=== PATIENT | female | born 1990 | race Caucasian/White ===

== ENCOUNTER 2020-12-15 15:45 | Outpatient (REF) | payer OTHER, SELFPAY ==
[2020-12-15 20:31] LABS: ALT 23 U/L (14-59); AST 16 U/L (15-37); Albumin 4.2 g/dL (3.4-5.0); Alkaline Phosphatase 50 U/L (46-116); Anion Gap 8.7 mmol/L (3-11); BUN 8 mg/dL (7-18); Bilirubin, Total 0.6 mg/dL (0.2-1.0); CO2 28.3 mmol/L (21.0-32.0); CREATININE 0.6 mg/dL (0.55-1.02); Calcium 9.2 mg/dL (8.5-10.1); Chloride 105 mmol/L (98-107); Glucose 93 mg/dL (74-106); Potassium 4.3 mmol/L (3.5-5.1); Sodium 142 mmol/L (136-145); TSH (W/Ref FT4) 1.14 uIU/mL (0.36-3.74); Total Protein 7.5 g/dL (6.4-8.2)
== END 2020-12-15 15:46 | disposition home or self-care (01) ==
LOC: NCHCN 15:45
PROVIDERS: Visit Provider Nurse Practitioner
DX: Z13.29 Encounter for screening for other suspected endocrine disorder (principal); F90.9 Attention-deficit hyperactivity disorder, unspecified type; Z83.49 Family history of other endocrine, nutritional and metabolic diseases
CPT/HCPCS: 80053; 84443

== ENCOUNTER 2021-01-14 09:21 | Outpatient (REF) | payer OTHER, SELFPAY ==
--- NOTE | 2021-01-14 08:15 | PAPFT_PTH ---
PATIENT: Sheron Melendez LOC: [facility]#:[id number] AGE/SX: 30/F ROOM: RE01/14/[address]: Manisha Denis : 1990 BED: DIS: 01/14/2021 SPEC #: [id number] RECD: 01/15/21 12:58 STATUS: NICOLE REQ #: [id number] TERE: 01/14/21 08:[address]: Manisha Denis DEPT: [facility] Cytology RECD BY: Pennie Santos ENTERED: 01/15/21 12:59 SP TYPE: PAPFT OTHR DR: Unknown,Unknown Tissues: 1 - CX/ENDOCX FOR PAP SMEARS Procedures: PAP THIN PREP/[facility] Screening Comments: [id number]
== END 2021-01-14 09:22 | disposition home or self-care (01) ==
LOC: NCHCN 09:21
PROVIDERS: Visit Provider Nurse Practitioner
DX: Z00.00 Encounter for general adult medical examination without abnormal findings (principal); Z12.4 Encounter for screening for malignant neoplasm of cervix
CPT/HCPCS: 88142

== ENCOUNTER 2023-10-13 10:02 | Outpatient (REF) | payer OTHER, SELFPAY ==
[2023-10-13 18:46] LABS: Abs Immature Grans 0.01 10^3/uL (0.0-0.06); Absolute Basophil Count 0.04 10^3/uL (0.0-0.2); Absolute Eosinophil Count 0.65 10^3/uL (0.0-0.7); Absolute Lymphocyte Count 2.43 10^3/uL (1.2-3.4); Absolute Neutrophil Count 3.01 10^3/uL (1.2-6.7); Basophils % 0.6; Eosinophils % 9.8; HCT 41.5 % (36.0-46.0); HGB 13.7 g/dL (11.2-15.7); Immature Grans % 0.2; Lymphocytes % 36.6; MCV 88 fL (80-95); MPV 10.9 fL (8.0-11.0); Monocytes % 7.5; Neutrophils % 45.3; Platelet Count 232 10^3/uL (130-400); RBC 4.72 10^6/uL (3.93-5.22); RDW 11.6 % (11.7-14.6); RDW-SD 37.2 fL; WBC 6.64 10^3/uL (4.4-10.8)
[2023-10-13 19:11] LABS: ALT 23 U/L (14-59); AST 16 U/L (15-37); Albumin 4.2 g/dL (3.4-5.0); Alkaline Phosphatase 58 U/L (46-116); BUN 12 mg/dL (7-18); Bilirubin, Total 0.5 mg/dL (0.2-1.0); CREATININE 0.5 mg/dL (0.55-1.02); Calcium 8.6 mg/dL (8.5-10.1); Chloride 105 mmol/L (98-107); Estimated GFR 128.52 (mL/min/1.73m2); Ferritin 36 ng/mL (8-252); Glucose 85 mg/dL (74-106); Potassium 4.6 mmol/L (3.5-5.1); Sodium 142 mmol/L (136-145); TSH (W/Ref FT4) 1.46 uIU/mL (0.36-3.74); Total Protein 7.6 g/dL (6.4-8.2)
[2023-10-13 20:41] LABS: Iron 56 ug/dL (50-170); Total Iron Binding Capacity 302 ug/dL (250-450); Transferrin Sat 19 % (15-50)
== END 2023-10-13 10:03 | disposition home or self-care (01) ==
LOC: NCHCN 10:02
PROVIDERS: Visit Provider Nurse Practitioner Family
DX: R53.83 Other fatigue (principal)
CPT/HCPCS: 80053; 82728; 83540; 83550; 84443; 85025

== ENCOUNTER 2024-04-03 16:18 | Outpatient (REF) | payer OTHER, SELFPAY ==
--- NOTE | 2024-04-03 13:45 | PAPFT_PTH ---
PATIENT: Sheron Melendez LOC: [facility] U#:[id number] AGE/SX: 33/F ROOM: RE04/03/[address]: Jihan Ramos : 1990 BED: DIS: 04/03/2024 SPEC #: [id number] RECD: 04/04/24 13:17 STATUS: NICOLE REQ #: [id number] TERE: 04/03/24 13:[address]: Jihan Ramos DEPT: [facility] Cytology RECD BY: Pennie Santos ENTERED: 04/04/24 13:19 SP TYPE: PAPFT OTHR DR: Unknown,Unknown Tissues: 1 - CX/ENDOCX FOR PAP SMEARS Procedures: PAP THIN PREP/[facility] Screening HPV DNA PROBE Comments: [id number] (HPV 16 & 18/45) (CHLAMYDIA/GC)
[2024-04-05 12:52] LABS: Chlamydia Result Negative (Negative); GC Result Negative (Negative)
== END 2024-04-03 16:19 | disposition home or self-care (01) ==
LOC: NCHCN 16:18
PROVIDERS: Visit Provider Nurse Practitioner Family
DX: Z11.51 Encounter for screening for human papillomavirus (HPV) (principal); Z01.419 Encounter for gynecological examination (general) (routine) without abnormal findings; Z11.3 Encounter for screening for infections with a predominantly sexual mode of transmission
CPT/HCPCS: 87491; 87591; 88142; 87624

== ENCOUNTER 2024-04-25 15:13 | Outpatient (REF) | payer OTHER, SELFPAY ==
--- OUTSIDE RECORDS SUMMARY | 2024-04-25 15:14 | XMS_ITS | Clinical Summary ---
Author Organization [facility] Address [address] [place] [address] Care Team Providers Care Enrobing Machine Feeder Name Role Phone Unknown, Provider Primary Care Provider Unava ilable Encounters Date Type Department Care Team Description 2024 Lab Requisition [facility] Pathology & Laboratory [address] [address] Jihan Ramos FNP Encounter for screening for human papillomavirus (HPV); Encounter for screening for malignant neoplasm of cervix; Encounter for general adult medical examination without abnormal findings 04/04/2024 Lab Requisition [facility] Pathology & Laboratory [address] [address] Outr Resulting Lab, Provider from Last 3 Months Social History Tobacco Use Types Packs/Day Years Used Date Smoking Tobacco: Never Assessed Sex and Gender Information Value Date Recorded Sex Assigned at Not on file Gender Identity Not on file Sexual Orientation Not on file Plan of Treatment Health Maintenance Due Date Last Done Comments Hepatitis C Screen 1990 Hepatitis B Vaccine (1 of 3 - 19+ 3-dose series) 04/05 COVID-19 Vaccine ( season) 2024 Procedures Procedure Name Priority Date/Time Associated Diagnosis Comments PAP TEST Today 04/03/2024 13:45 EDT Encounter for screening for human papillomavirus (HPV) Encounter for screening for malignant neoplasm of cervix Encounter for general adult medical examination without abnormal findings HPV DNA DETECTION WITH GENOTYPING, PCR Today 04/03/2024 13:45 EDT Encounter for screening for human papillomavirus (HPV) Encounter for screening for malignant neoplasm of cervix Encounter for general adult medical examination without abnormal findings CHLAMYDIA/N. GONORRHOEAE AMPLIFIED NUCLEIC ACID, THINPREP Routine 04/03/2024 13:45 EDT from Last 3 Months Results * PAP TEST (04/03/2024 13:45 EDT) Specimens A. Cervix and/or Endocervix , ThinPrep Imaging System with Manual Evaluation 04/16/2024 14:29 EDT [facility] Specimen Adequacy Satisfactory for Evaluation - transformation zone component present 04/16/2024 14:29 [facility] General Categorization Negative for intraepithelial lesion or malignancy 04/16/2024 14:29 [facility] Attestation . 04/16/2024 14:29 [facility] at 1428 Clinical History SEE BELOW 04/16/20 14:29 [facility] Performing Lab [facility] 04/16/2024 14:29 [facility] Scanned Images 04/16/2024 14:29 [facility] HPV High Risk type 16, PCR Negative 04/16/2024 14:29 [facility] HPV High Risk type 18, PCR Negative 04/16/2024 14:29 [facility] HPV Other High Risk Types, PCR Negative The following Other High Risk HPV types were not detected: 31,33, 35, 39, 45, 51, 52, 56, 58, 59, 66 and 68. 04/16/2024 14:29 [facility] Pap Test CERVIX UTERI STRUCTURE / Unknown 04/03/2024 13:45 EDT 2024 15:04 EDT Jihan Ramos CUTTING MACHINE TENDER HELPER PATHOLOGY ORDERABLES [facility] [address] [place], [place] [id number] * CHLAMYDIA/N. GONORRHOEAE AMPLIFIED NUCLEIC ACID, THINPREP (04/03/2024 13:45 EDT) Neisseria gonorrhoeae Result Negative Negative 2024 12:47 EDT [facility] Chlamydia trachomatis Result Negative Negative 2024 12:47 EDT [facility] Pap Test CERVIX UTERI STRUCTURE / Unknown 04/03/2024 13:45 EDT 2024 8:41 EDT Provider Outr Resulting Lab MICROBIOLOGY - GENERAL ORDERABLES Performing Organization Address City/[facility]/ZIP Co de Phone Number [facility] [address] [place] [address] * HPV DNA DETECTION WITH GENOTYPING, PCR (04/03/2024 13:45 EDT) HPV High Risk type 16, PCR Negative Negative 04/16/2024 14:29 EDT [facility] HPV High Risk type 18, PCR Negative Negative 04/16/2024 14:29 EDT [facility] HPV other High Risk types, PCR Negative Negative 04/16/2024 14:29 EDT [facility] Comment: The following Other High Risk HPV types were not detected: ??31,33, 35, 39, 45, 51, 52, 56, 58, 59, 66 and 68. Pap Test CERVIX UTERI STRUCTURE / Unknown 04/03/2024 13:45 EDT 04/13/2024 10:13 EDT Jihan Ramos CUTTING MACHINE TENDER HELPER MICROBIOLOGY - GENER AL ORDERABLES Performing Organization Address City/[facility]/ZIP Co de Phone Number [facility] [address] [place], [place] [address] from Last 3 Months Care Teams Enrobing Machine Feeder Relationship Specialty Start Date End Date Unknown, Provider, PCP - General 07/19/15
--- OUTSIDE RECORDS SUMMARY | 2024-04-25 15:14 | XMS_ITS | Encounter Summary ---
Author Organization [facility] Address [address] [place] [address] Care Team Providers Care Railway Yard Assistant Name Role Phone Unknown, Provider Primary Care Provider Ilene ilable Encounter Details Date Type Department Care Team (Late st Contact Info) Description 04/04/2024 Lab Requisition [facility] Pathology & Laboratory Medicine - [address] [phone] Outr Resulting Lab, Provider Social History Tobacco Use Types Packs/Day Years Used Date Smoking Tobacco: Never Assessed Sex and Gender Information Value Date Recorded Sex Assigned at Not on file Gender Identity Not on file Sexual Orientation Not on file documented as of this encounter Plan of Treatment Not on file documented as of this encounter Procedures Procedure Name Priority Date/Time Associated Diagnosis Comments CHLAMYDIA/N. GONORRHOEAE AMPLIFIED NUCLEIC ACID, THINPREP Routine 04/03/2024 13:45 EDT documented in this encounter Results * CHLAMYDIA/N. GONORRHOEAE AMPLIFIED NUCLEIC ACID, THINPREP (04/03/2024 13:45 EDT) Neisseria gonorrhoeae Result Negative Negative 2024 12:47 EDT [facility] Chlamydia trachomatis Result Negative Negative 2024 12:47 EDT [facility] Pap Test CERVIX UTERI STRUCTURE / Unknown 04/03/2024 13:45 EDT 2024 8:41 EDT Provider Outr Resulting Lab MICROBIOLOGY - GENERAL ORDERABLES [facility] [address] [place], [place] [id number] [phone] documented in this encounter Visit Diagnoses Not on filedocumented in this encounter Care Teams Railway Yard Assistant Relationship Specialty Start Date End Date Unknown, Provider, PCP - General 07/19/15 documented as of this encounter
--- OUTSIDE RECORDS SUMMARY | 2024-04-25 15:14 | XMS_ITS | Referral Summary ---
Author Organization [facility] Address [address] [place] [address] Care Team Providers Care Turbine Inspector Name Role Phone Unknown, Provider Primary Care Provider Unava ilable Encounters Date Type Department Care Team Description 2024 Lab Requisition [facility] Pathology & Laboratory [address] [address] Jihan Ramos FNP Encounter for screening for human papillomavirus (HPV); Encounter for screening for malignant neoplasm of cervix; Encounter for general adult medical examination without abnormal findings 04/04/2024 Lab Requisition [facility] Pathology & Laboratory [address] [address] Outr Resulting Lab, Provider from Last 3 Months Social History Tobacco Use Types Packs/Day Years Used Date Smoking Tobacco: Never Assessed Sex and Gender Information Value Date Recorded Sex Assigned at Not on file Gender Identity Not on file Sexual Orientation Not on file Plan of Treatment Not on file Procedures Procedure Name Priority Date/Time Associated Diagnosis [...] Imaging System with Manual Evaluation 04/16/2024 14:29 [facility] Specimen Adequacy Satisfactory for Evaluation - transformation zone component present 04/16/2024 14:29 [facility] General Categorization Negative for intraepithelial lesion or malignancy 04/16/2024 14:29 [facility] Attestation . 04/16/2024 14:29 [facility] at 1428 Clinical History SEE BELOW 04/16/20 14:29 [facility] Performing Lab [facility] 04/16/2024 14:29 [facility] Scanned Images 04/16/2024 14:29 [facility] HPV High Risk type 16, PCR Negative 04/16/2024 14:29 [facility] HPV High Risk type 18, PCR Negative 04/16/2024 14:29 [facility] HPV Other High Risk Types, PCR Negative The following Other High Risk HPV types were not detected: 31,33, 35, 39, 45, 51, 52, 56, 58, 59, 66 and 68. 04/16/2024 14:29 [facility] Pap Test CERVIX UTERI STRUCTURE / Unknown 04/03/2024 13:45 EDT 2024 15:04 EDT Jihan Ramos THERMAL MOLDER PATHOLOGY ORDERABLES [facility] [address] [place] [address] * CHLAMYDIA/N. GONORRHOEAE AMPLIFIED NUCLEIC ACID, THINPREP (04/03/2024 13:45 EDT) Neisseria gonorrhoeae Result Negative Negative 2024 12:47 EDT [facility] Chlamydia trachomatis Result Negative Negative 2024 12:47 EDT [facility] Pap Test CERVIX UTERI STRUCTURE / Unknown 04/03/2024 13:45 EDT 2024 8:41 EDT Provider Outr Resulting Lab MICROBIOLOGY - GENERAL ORDERABLES Performing Organization Address [facility] Co de Phone Number [facility] [address] [place] [address] * HPV DNA DETECTION WITH GENOTYPING, PCR (04/03/2024 13:45 EDT) HPV High Risk type 16, PCR Negative Negative 04/16/2024 14:29 EDT [facility] HPV High Risk type 18, PCR Negative Negative 04/16/2024 14:29 EDT [facility] HPV other High Risk types, PCR Negative Negative 04/16/2024 14:29 EDT [facility] Comment: The following Other High Risk HPV types were not detected: ??31,33, 35, 39, 45, 51, 52, 56, 58, 59, 66 and 68. Pap Test CERVIX UTERI STRUCTURE / Unknown 04/03/2024 13:45 EDT 04/13/2024 10:13 EDT Jihan Ramos THERMAL MOLDER MICROBIOLOGY - GENER AL ORDERABLES Performing Organization Address City/[facility]/ZIP Co de Phone Number [facility] [address] [place] [address] from Last 3 Months Care Teams Turbine Inspector Relationship Specialty Start Date End Date Unknown, Provider, PCP - General 07/19/15
--- OUTSIDE RECORDS SUMMARY | 2024-04-25 15:14 | XMS_ITS | Encounter Summary ---
Author Organization [facility] Address [address] [place] [address] Care Team Providers Care Major Donor Coordinator Name Role Phone Unknown, Provider Primary Care Provider Unava ilable Encounter Details Date Type Department Care Team (Latest Contact Info) Description 2024 Lab Requisition [facility] Pathology & Laboratory Medicine - [facility] [address] [place] [address] Jihan Ramos, ALYSA [address] [place] [address] Encounter for screening for human papillomavirus (HPV); Encounter for screening for malignant neoplasm of cervix; Encounter for general adult medical examination without abnormal findings Social History Tobacco Use Types Packs/Day Years [...] general adult medical examination without abnormal findings documented in this encounter Results * HPV DNA DETECTION WITH GENOTYPING, PCR (04/03/2024 13:45 EDT) HPV High Risk type 16, PCR Negative Negative 04/16/2024 14:29 [facility] HPV High Risk type 18, PCR Negative Negative 04/16/2024 14:29 [facility] HPV other High Risk types, PCR Negative Negative 04/16/2024 14:29 [facility] Comment: The following Other High Risk HPV types were not detected: ??31,33, 35, 39, 45, 51, 52, 56, 58, 59, 66 and 68. Pap Test CERVIX UTERI STRUCTURE / Unknown 04/03/2024 13:45 EDT 04/13/2024 10:13 EDT Jihan Ramos ASSISTANT LOAN PROCESSOR MICROBIOLOGY - GENER AL ORDERABLES [facility] [address] [place] [address] * PAP TEST (04/03/2024 13:45 EDT) Specimens A. Cervix and/or Endocervix , ThinPrep Imaging System with Manual Evaluation 04/16/2024 14:29 [facility] Specimen Adequacy Satisfactory for Evaluation - transformation zone component present 04/16/2024 14:29 [facility] General Categorization Negative for intraepithelial lesion or malignancy 04/16/2024 14:29 [facility] Attestation . 04/16/2024 14:29 [facility] at 1428 Clinical History SEE BELOW 04/16/20 14:29 [facility] Performing Lab [facility] 04/16/2024 14:29 [facility] Scanned Images 04/16/2024 14:29 [facility] HPV High Risk type 16, PCR Negative 04/16/2024 14:29 [facility] HPV High Risk type 18, PCR Negative 04/16/2024 14:29 [facility] HPV Other High Risk Types, PCR Negative The following Other High Risk HPV types were not detected: 31,33, 35, 39, 45, 51, 52, 56, 58, 59, 66 and 68. 04/16/2024 14:29 EDT [facility] Pap Test CERVIX UTERI STRUCTURE / Unknown 04/03/2024 13:45 EDT 2024 15:04 EDT Jihan Ramos ASSISTANT LOAN PROCESSOR PATHOLOGY ORDERABLES Performing Organization Address City/State/[facility] Co de Phone Number [facility] [address] [place] [address] documented in this encounter Visit Diagnoses Diagnosis Encounter for screening for human papillomavirus (HPV) Special screening examination for human papillomavirus (HPV) Encounter for screening for malignant neoplasm of cervix Screening for malignant neoplasm of the cervix Encounter for general adult medical examination without abnormal findings Unspecified general medical examination documented in this encounter Care Teams Major Donor Coordinator Relationship Specialty Start Date End Date Unknown, Provider, PCP - General 07/19/15 documented as of this encounter
--- OUTSIDE RECORDS SUMMARY | 2024-04-25 15:15 | XMS_ITS | Encounter Summary ---
Author Organization [facility] Address [address] [place] [address] Care Team Providers Care Blood Bank Booking Clerk Name Role Phone Unknown, Provider Primary Care Provider Unava ilable Encounter Details Date Type Department Care Team (Latest Contact Info) Description 01/16/2021 Lab Requisition [facility] Pathology & Laboratory Medicine - [address] [address] Manisha Denis NP [address] [place], [place] [id number] Encounter for general adult medical examination without abnormal findings; Encounter for screening for malignant neoplasm of cervix; Encounter for screening for human papillomavirus (HPV) Social History Tobacco Use Types Packs/Day Years Used Date Smoking Tobacco: Never Assessed Sex and Gender Information Value Date Recorded Sex Assigned at Not on file Gender Identity Not on file Sexual Orientation Not on file documented as of this encounter Plan of Treatment Not on file documented as of this encounter Procedures Procedure Name Priority Date/Time Associated Diagnosis Comments PAP TEST Today 01/14/2021 8:15 EDT Encounter for general adult medical examination without abnormal findings Encounter for screening for malignant neoplasm of cervix Encounter for screening for human papillomavirus (HPV) documented in this encounter Results * PAP TEST (01/14/2021 8:15 EDT) Specimens A. Cervix and/or Endocervix , ThinPrep Imaging System with Manual Evaluation 01/23/2021 16:49 EDT [facility] Specimen Adequacy Satisfactory for Evaluation - transformation zone component present 01/23/2021 16:49 EDT [facility] General Categorization Negative for intraepithelial lesion or malignancy 01/23/2021 16:49 EDT [facility] Attestation . 01/23/2021 16:49 EDT [facility] at 1649 Clinical History See below 01/24/20 16:49 EDT [facility] Performing Lab [facility] 01/23/2021 16:49 EDT [facility] Scanned Images 01/23/2021 16:49 EDT [facility] Papanicolaou smear specimen (specimen) CERVIX UTERI STRUCTURE / Unknown 01/14/2021 8:15 EDT 01/16/2021 12:12 EDT Manisha Denis NP PATHOLOGY ORDERABLES [facility] [address] [place] [address] documented in this encounter Visit Diagnoses Diagnosis Encounter for general adult medical examination without abnormal findings Unspecified general medical examination Encounter for screening for malignant neoplasm of cervix Screening for malignant neoplasm of the cervix Encounter for screening for human papillomavirus (HPV) Special screening examination for human papillomavirus (HPV) documented in this encounter Care Teams Blood Bank Booking Clerk Relationship Specialty Start Date End Date Unknown, Provider, PCP - General 07/19/15 documented as of this encounter
[2024-04-25 19:37] LABS: HCT 41.2 % (36.0-46.0); HGB 13.6 g/dL (11.2-15.7); MCV 88 fL (80-95); MPV 11.1 fL (8.0-11.0); Platelet Count 244 10^3/uL (130-400); RBC 4.69 10^6/uL (3.93-5.22); RDW 11.7 % (11.7-14.6); RDW-SD 37.2 fL; WBC 8.96 10^3/uL (4.4-10.8)
[2024-04-25 19:47] LABS: Iron 84 ug/dL (50-170); Total Iron Binding Capacity 307 ug/dL (250-450)
[2024-04-25 20:13] LABS: ALT 19 U/L (14-59); AST 17 U/L (15-37); Albumin 4.4 g/dL (3.4-5.0); Alkaline Phosphatase 63 U/L (46-116); BUN 12 mg/dL (7-18); CREATININE 0.6 mg/dL (0.55-1.02); Calcium 9.4 mg/dL (8.5-10.1); Chloride 106 mmol/L (98-107); Estimated GFR 122.23 (mL/min/1.73m2); Ferritin 36 ng/mL (8-252); Glucose 89 mg/dL (74-106); Sodium 142 mmol/L (136-145); TSH 0.83 uIU/mL (0.36-3.74); Total Protein 7.8 g/dL (6.4-8.2)
[2024-04-26 02:56] LABS: FREE T4 0.97 ng/dL (0.76-1.46)
== END 2024-04-25 15:14 | disposition home or self-care (01) ==
LOC: NCHCN 15:13
PROVIDERS: Visit Provider Nurse Practitioner Family
DX: Z00.00 Encounter for general adult medical examination without abnormal findings (principal)
CPT/HCPCS: 80053; 85027; 82728; 83540; 83550; 84439; 84443

== ENCOUNTER 2025-02-20 17:03 | Outpatient (CLI) | payer OTHER, SELFPAY ==
[2025-02-20 17:17] LABS: TSH (W/Ref FT4) 1.12 uIU/mL (0.36-3.74)
[2025-02-20 17:30] LABS: Hemoglobin A1C 4.9 % (<5.7)
[2025-03-06 17:28] LABS: Testosterone, Free 2.3 pg/mL (0.1-6.4)
== END 2025-02-20 17:04 | disposition home or self-care (01) ==
LOC: LBO 17:04
PROVIDERS: PCP Nurse Practitioner Family; Visit Provider Nurse Practitioner Women's Health
DX: N92.6 Irregular menstruation, unspecified (principal); N94.6 Dysmenorrhea, unspecified
CPT/HCPCS: 36415; 84402; 84403; 83036; 84443